=== PATIENT | female | born 1985 | race Caucasian/White ===

== ENCOUNTER 2017-10-13 20:26 | Emergency (ER) | payer BC ==
[~2017-10-13] VITALS: Ht 154.9 cm; Wt 90.7 kg
--- OUTSIDE RECORDS SUMMARY | 2017-10-13 20:29 | XMS REPORT ---
Author Author [facility] Address Unknown Phone Unavailable Care Team Providers Care Filling Separator Name Role Phone Unavailable Unavailable Problems This patient has no known problems. Allergies, Adverse Reactions, Alerts This patient has no known allergies or adverse reactions. Medications This patient has no known medications. Encounters Start Date/Time End Date/Time Encounter Type Admission Type Attending [facility] Facility Care Department Encounter ID 2017-04-21 00:00:00 2017-04-21 00:00:00 Outpatient [facility] [id number]
--- OUTSIDE RECORDS SUMMARY | 2017-10-13 20:29 | XMS REPORT | Summary of Care ---
Author Author Luciana Gallo M.A. Unknown Address [facility] Phone Unavailable Care Team Providers Care Deli Bakery Clerk Name Role Phone ROMELIA MADRID Unavailable Unavailable DANILO REESE N.P. Unavailable Unavailable PALMER MARQUIS ME, TATA RAINES Unavailable Unavailable TATA CHAKRABORTY M.D. Unavailable Unavailable RADHA MARQUIS ME, LORA Kruse Unavailable Unavailable Unavailable Unavailable Functional Status Name Dates Details Functional status health issues are not documented Status: Name Dates Details Cognitive status health issues are not documented Status: Problems Name Dates Details Abdominal pain (789.00, R10.9) Status: Active Nonspecific finding on examination of urine (791.9, R82.90) Status: Active Visit for gynecologic examination (V72.31, Z01.419) Status: Active Yeast infection involving the vagina and surrounding area (112.1, B37.3) Status: Active Hematuria (599.70, R31.9) Status: Active Chlamydia contact (V01.6, Z20.2) Status: Active Muscle spasm (728.85, M62.838) Status: Active Allergic rhinitis (477.9, J30.9) Status: Active Dysuria (788.1, R30.0) Status: Active Upper respiratory infection, acute (465.9, J06.9) Status: Active Animal bite of left thigh (890.0, S71.152A) Status: Active 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, B00.9) Status: Active Acute pharyngitis (462, J02.9) Status: Active Vaginal discharge (623.5, N89.8) Status: Active Cellulitis of nasal tip (682.0, J34.0) Status: Active Nasal septal abscess (478.19, J34.0) Status: Active Generalized anxiety disorder (300.02, F41.1) Status: Active Snoring (786.09, R06.83) Status: Active Essential (primary) hypertension (401.9, I10) Status: Active Bacterial vaginitis (616.10, N76.0) Status: Active Acute UTI (599.0, N39.0) Status: Active Acute frontal sinusitis (461.1, J01.10) Status: Active Exposure to STD (V01.6, Z20.2) Status: Active Viral URI (465.9, J06.9) Status: Active Medications Name Dates Details Lisinopril-Hydrochlorothiazide 20-12.5 MG Oral Tablet TAKE ONE TABLET BY MOUTH DAILY (NEED OFFICE VISIT) Quantity: 15 TRUONG P.A., ROMELIA * Start : 04-Oct-2017 Active ValACYclovir HCl - 500 MG Oral Tablet TAKE 1 TABLET DAILY * Quantity: 90 Refills: 2 TRUONG P.A., ROMELIA * Start : 02-Dec-2015 Active Bromfed DM 30-2-10 MG/5ML Oral Syrup TAKE 5 ML EVERY 4 TO 6 HOURS NEEDED. * Quantity: 120 Refills: 0 GARCIA-FOSTER N.P., DANILO * Start : 18-Aug-2017 Active Fluticasone Propionate 50 MCG/ACT Nasal Suspension USE 1 SPRAY IN EACH NOSTRIL TWICE DAILY. * Quantity: 1 Refills: 1 GARCIA-FOSTER N.P., DANILO * Start : 18-Aug-2017 Active 15.8 ML Bottle Allergies and Adverse Reactions Name Dates Details No Known Drug Allergies (Allergy) Status: Active Past Medical History Name Dates Details History of Chlamydia contact (V01.6, Z20.2) Status: Resolved History of pharyngitis (V12.69, Z87.09) Status: Resolved History of sprain of knee (V13.59, Z87.828) Status: Resolved Procedures Procedure Dates Details History of Tonsillectomy Completed History of Corneal LASIK Bilateral Completed Immunization Name Dates Details Tdap (Adacel) Lot #: [id number] on: 19-Feb-2016 Family History Name Dates Details Family history of Hypertension (V17.49) Status: Active Social History Name Dates Details - Status: Name Dates Details Never smoker Vital Signs Date Test Result Details No Known Vitals to report Results Date Description Value Details Results not documented Plan of Care Name Dates Details Planned Observations Planned Goals not documented Instructions Name Dates Details Instructions not documented Encounters Appointment; ROMELIA GUERIN P.A. Encounter Diagnosis: Problem not documented On: 23-Nov-2015 10:15 Appointment; ROMELIA GUERIN P.A. Encounter Diagnosis: Problem not documented On: 18-Dec-2015 9:30 Appointment; ROMELIA GUERIN P.A. Encounter Diagnosis: Problem not documented On: 09-Feb-2016 8:30 Appointment; ROMELIA GUERIN P.A. Encounter Diagnosis: Problem not documented On: 19-Feb-2016 11:00 Appointment; ROMELIA GUERIN P.A. Encounter Diagnosis: Problem not documented On: 01-Jun-2016 15:00 Appointment; ROMELIA GUERIN P.A. Encounter Diagnosis: Problem not documented On: 14-Jul-2016 14:30 Appointment; CORA MAI D.O. Encounter Diagnosis: Problem not documented On: 01-Nov-2016 9:00 Appointment; ROMELIA GUERIN P.A. Encounter Diagnosis: Problem not documented On: 15-Dec-2016 11:15 Appointment; ROMELIA GUERIN P.ADarius Encounter Diagnosis: Problem not documented On: 02-Feb-2017 14:30 Appointment; ROMELIA GUERIN P.A. Encounter Diagnosis: Problem not documented On: 06-Mar-2017 15:45 Appointment; ROMELIA GUERIN P.A. Encounter Diagnosis: Problem not documented On: 25-Jul-2017 13:45 Appointment; DANILO REESE NP Encounter Diagnosis: Problem not documented On: 18-Aug-2017 14:30
[2017-10-13] MEDS ORDERED: LISINOPRIL10 MG PO (20:54)
[2017-10-13 21:08] LABS: BASOPHILS % 0.5 % (0.0-1.0); EOSINOPHILS # (AUTO) 0.2 (0.0-0.4); EOSINOPHILS % 2.1 % (0.0-6.0); HEMOGLOBIN 13.1 g/dL (12.0-16.0); LYMPHOCYTES # (AUTO) 2.4 (1.0-3.2); LYMPHOCYTES % 30.4 % (18.0-39.1); MEAN CORPUSCULAR HEMOGLOBIN 30.8 pg (28-32); MEAN CORPUSCULAR HGB CONC 34.5 g/dL (31-35); MEAN CORPUSCULAR VOLUME 89.2 fL (81-99); MONOCYTES # (AUTO) 0.9 (0.2-0.8); MONOCYTES % 10.8 % (4.4-11.3); NEUTROPHILS # (AUTO) 4.4 (2.1-6.9); NEUTROPHILS % 55.8 % (38.7-80.0); PLATELET COUNT 261 x10e3/uL (140-360); RED BLOOD COUNT 4.26 x10e6/uL (3.6-5.1); RED CELL DISTRIBUTION WIDTH 12.3 % (11.7-14.4)
[2017-10-13 21:09] LABS: BILIRUBIN,URINE NEGATIVE (NEGATIVE); CLARITY,URINE CLEAR (CLEAR); COLOR,URINE YELLOW (YELLOW); KETONES,URINE NEGATIVE (NEGATIVE); LEUKOCYTE ESTERASE ,URINE 1+ (NEGATIVE); NITRITE,URINE NEGATIVE (NEGATIVE); PROTEIN,URINE DIPSTICK NEGATIVE (NEGATIVE); URINE UROBILINOGEN 0.2 mg/dL (0.2 - 1)
[2017-10-13 21:10] LABS: PREGNANCY TEST, URINE NEGATIVE (NEGATIVE)
[2017-10-13 21:24] LABS: EPITHELIAL CELLS,URINE MODERATE /LPF; RBC,URINE 0-5 /HPF (0-5); TRANSITIONAL EPI CELLS,URINE FEW; WBC,URINE (MAN) 0-5 /HPF (0-5)
[2017-10-13 21:25] LABS: ALANINE AMINOTRANSFERASE 23 IU/L (0-55); ALBUMIN 3.8 g/dL (3.5-5.0); ALKALINE PHOSPHATASE 47 IU/L (40-150); ANION GAP 12.6 mmol/L (8-16); BLOOD UREA NITROGEN 14 mg/dL (7-26); BUN/CREATININE RATIO 20 (6-25); CALCIUM 9.3 mg/dL (8.4-10.2); CARBON DIOXIDE 22 mmol/L (22-29); CHLORIDE 105 mmol/L (98-107); CREATININE, SERUM 0.71 mg/dL (0.57-1.11); EST GLOMERULAR FILTRATION RATE > 60 ML/MIN (60-); GLUCOSE 79 mg/dL (74-118); POTASSIUM 3.6 mmol/L (3.5-5.1); SODIUM 136 mmol/L (136-145)
[2017-10-13 21:36] LABS: AMYLASE 44 U/L (25-125); LIPASE 25 U/L (8-78)
[2017-10-13] MEDS ORDERED: PANTOPRAZOLE 40 MG 10ML VIAL IV STA (23:11)
[2017-10-13] MEDS ORDERED: SODIUM CHLORIDE 0.9% 1000ML 1,000 ML IV STA (23:11)
[2017-10-13] MEDS ORDERED: ONDANSETRON HCL INJ 2 MG/ML VIAL IV STA (23:11)
--- NOTE | 2017-10-14 01:00 | Diagnostic Imaging Report ---
EXAM: CT ABDOMEN AND PELVIS with IV CONTRAST DATE: 10/14/2017 11:11 PM Time stamp on Exam: 0033 hours INDICATION: Left-sided pain COMPARISON: None TECHNIQUE: The abdomen and pelvis were scanned using a multidetector helical scanner. Coronal and sagittal reformations were obtained. Routine protocol performed. IV Contrast: 100 cc Isovue-370 Oral Contrast: None CTDIvol has been reviewed. It is below the limits set by the Radiation Protocol Committee (RPC). FINDINGS: LOWER THORAX: No consolidations LIVER: No masses BILIARY: The gallbladder is unremarkable. No ductal dilation. SPLEEN: No masses PANCREAS: No masses ADRENALS: No nodules KIDNEYS: Symmetric perfusion. No enhancing masses. No hydronephrosis. GI TRACT: No distention, wall thickening or evidence of obstruction. Normal appendix. VESSELS: Unremarkable PERITONEUM/RETROPERITONEUM: No free air or fluid LYMPH NODES: No lymphadenopathy REPRODUCTIVE ORGANS: Unremarkable BLADDER: Unremarkable SOFT TISSUES: Unremarkable BONES: No suspicious bone lesions. IMPRESSION: Normal CT of the abdomen and pelvis. Signed by: Dr. Yue Bone M.D. on 10/14/2017 12:56 AM
[2017-10-14] MEDS ORDERED: IOPAMIDOL 370 MG/ML 200 ML INFUS..BTL INJ ONE (03:49)
[2017-10-14] MEDS ORDERED: SODIUM CHLORIDE 0.9% 50ML 50 ML ONE (03:49)
== END 2017-10-14 01:48 | disposition home or self-care (01) ==
LOC: ER 20:26
DX: R10.13 Epigastric pain (principal); R10.12 Left upper quadrant pain; R11.0 Nausea; K29.00 Acute gastritis without bleeding
CPT/HCPCS: 36415; 74177; 80053; 81001; 81025; 82150; 83690; 85025; 99284; J2405; J7030; Q9967